=== PATIENT | male | born 1970 | race Caucasian/White ===

== ENCOUNTER 2018-05-19 22:16 | Inpatient (IN) | payer OTHER ==
[2018-05-19] MEDS ORDERED: HEPARIN SODIUM,PORCINE 5,000 UNIT/ML 1 ML VIAL IV ONE (22:34)
[2018-05-19] MEDS ORDERED: HEPARIN SODIUM,PORCINE 5,000 UNIT/ML 1 ML VIAL IV PRN (22:34)
[2018-05-19] MEDS ORDERED: NITROGLYCERIN-D5W PMX 50 MG in DEXTROSE/WATER 1 250ML.BAG IV ONE (22:34)
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
[2018-05-19] MEDS: HEPARIN SOD,PORK IN 0.45% NACL 25,000 UNIT in 0.45% NACL 1 250ML.BAG IV SCH (23:12)
[2018-05-19] MEDS ORDERED: MORPHINE SULFATE 4 MG/ML SYRINGE IV PRN (23:25)
[2018-05-19] MEDS ORDERED: NALOXONE 0.4 MG/ML 1 ML VIAL IV PRN (23:25)
[2018-05-19] MEDS ORDERED: ONDANSETRON 4 MG/2 ML VIAL IVP PRN (23:25)
[2018-05-19] MEDS ORDERED: cloNIDine HCL 0.2 MG TAB PO PRN (23:28)
[2018-05-20 00:22] LABS: Basophils # (A) 0.1 k/uL (0-0.2); Basophils % (A) 1 %; Eosinophils # (A) 0.4 k/uL (0-0.7); Eosinophils % (A) 5 %; HCT 48.6 % (39.0-53.0); HGB 16.2 gm/dL (13.0-17.5); Lymphocytes # (A) 3.3 k/uL (1.0-4.8); Lymphocytes % (A) 37 %; MCH 31.4 pg (25.0-35.0); MCHC 33.4 g/dL (31.0-37.0); MCV 94.1 fL (80.0-100.0); Mean Platelet Volume 7.2; Monocytes # (A) 0.4 k/uL (0-1.0); Monocytes % (A) 5 %; Neutrophils # (A) 4.6 k/uL (1.3-7.7); Neutrophils % (A) 52 %; Platelet Count 301 k/uL (150-450); RBC 5.16 m/uL (4.30-5.90); RDW 13.5 % (11.5-15.5); WBC 8.9 k/uL (3.8-10.6)
[2018-05-20 00:28] LABS: Partial Thromboplastin Time 46.1 sec (22.0-30.0); Prothrombin Time 10.5 sec (9.0-12.0)
[2018-05-20 00:31] LABS: ALT 44 U/L (21-72); AST 35 U/L (17-59); Albumin 4.8 g/dL (3.5-5.0); Alkaline Phosphatase 120 U/L (38-126); Anion Gap 14 mmol/L; Blood Urea Nitrogen 16 mg/dL (9-20); Calcium 11.3 mg/dL (8.4-10.2); Carbon Dioxide 21 mmol/L (22-30); Chloride 104 mmol/L (98-107); Glucose 99 mg/dL (74-99); Magnesium 1.9 mg/dL (1.6-2.3); Potassium 4.4 mmol/L (3.5-5.1); Sodium 139 mmol/L (137-145); Total Bilirubin 0.8 mg/dL (0.2-1.3)
[2018-05-20] MEDS ORDERED: MAG HYDROX/AL HYDROX/SIMETH 30 ML, HYOSCYAMINE ELIXIR 10 ML, CIMETIDINE HCL 300 MG PO ONE ×3 (01:34)
[2018-05-20] MEDS: CALCIUM CARBONATE 500 MG CHEWABLE PO PRN ×2 (01:36→23:39)
[2018-05-20] MEDS ORDERED: PANTOPRAZOLE 40 MG/10 ML VIAL IVP STA (02:16)
[2018-05-20 02:19] VITALS: BMI 32.6
[2018-05-20] MEDS: ACETAMINOPHEN TAB 325 MG TAB PO PRN ×2 (02:26→09:15)
[2018-05-20] MEDS: ALBUTEROL NEBULIZED 2.5 MG/3 ML INHALATION PRN ×2 (02:55→07:33)
[2018-05-20 04:36] LABS: Basophils # (A) 0.1 k/uL (0-0.2); Basophils % (A) 1 %; Eosinophils # (A) 0.4 k/uL (0-0.7); Eosinophils % (A) 4 %; HCT 46.5 % (39.0-53.0); HGB 15.3 gm/dL (13.0-17.5); Lymphocytes # (A) 2.4 k/uL (1.0-4.8); Lymphocytes % (A) 25 %; MCH 31.1 pg (25.0-35.0); MCHC 32.8 g/dL (31.0-37.0); MCV 94.8 fL (80.0-100.0); Mean Platelet Volume 6.3; Monocytes # (A) 0.5 k/uL (0-1.0); Monocytes % (A) 5 %; Neutrophils # (A) 6.3 k/uL (1.3-7.7); Neutrophils % (A) 64 %; Platelet Count 260 k/uL (150-450); RBC 4.91 m/uL (4.30-5.90); RDW 13.5 % (11.5-15.5); WBC 9.8 k/uL (3.8-10.6)
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
[2018-05-20] MEDS ORDERED: cloNIDine HCL 0.2 MG TAB PO SCH (09:00)
[2018-05-20] MEDS ORDERED: VALSARTAN 80 MG TAB PO SCH (09:00)
[2018-05-20] MEDS ORDERED: PANTOPRAZOLE 40 MG/10 ML VIAL IVP SCH (09:00)
[2018-05-20] MEDS ORDERED: ASPIRIN 325 MG TAB PO STA ×2 (09:09→09:22)
[2018-05-20] MEDS: METOPROLOL TARTRATE 25 MG TAB PO SCH ×2 (09:14→20:18)
[2018-05-20] MEDS ORDERED: ATORVASTATIN 80 MG TAB PO SCH (09:15)
[2018-05-20] MEDS ORDERED: SODIUM CHLORIDE 0.9% 1,000 ML in EMPTY BAG 1 BAG IV ONE (09:22)
[2018-05-20] MEDS ORDERED: ATORVASTATIN 80 MG TAB PO STA (09:22)
[2018-05-20] MEDS ORDERED: ALPRAZolam 0.25 MG TAB PO PRN (09:22)
[2018-05-20] MEDS ORDERED: ALPRAZolam 0.5 MG TAB PO PRN (09:22)
[2018-05-20] MEDS ORDERED: NITROGLYCERIN SL TABS 0.4 MG TAB SUBLINGUAL PRN (09:22)
[2018-05-20 09:56] LABS: Glucose,Whole Blood 133 mg/dL (75-99)
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
[2018-05-20] MEDS ORDERED: LIDOCAINE 1% INJ 10MG/ML (20 ML MDV) ONE (12:17)
[2018-05-20] MEDS ORDERED: IV FLUID CONTINUATION 1,000 ML IV ONE (12:19)
[2018-05-20] MEDS ORDERED: fentaNYL (PF) 50 MCG/ML 2 ML AMP ONE (12:40)
[2018-05-20] MEDS ORDERED: MIDAZOLAM 2 MG/2 ML VIAL IV ONE (12:44)
[2018-05-20] MEDS ORDERED: fentaNYL (PF) 50 MCG/ML 2 ML AMP IV ONE (12:44)
[2018-05-20] MEDS ORDERED: LIDOCAINE 1% INJ 10MG/ML (20 ML MDV) SQ ONE (12:45)
[2018-05-20] MEDS ORDERED: IOPAMIDOL-370 150ML BTL INJ ONE (12:59)
[2018-05-20] MEDS ORDERED: RX INFO: IV CONTRAST WAS GIVEN 1 EACH MISC MISCELLANE PRN (13:13)
--- NOTE | 2018-05-20 13:29 | CC ---
CARDIAC CATHETERIZATION REPORT Mr. Sams is a 47-year-old gentleman who was admitted with the complaint of chest discomfort and high blood pressure. The pain was in the substernal area. The patient's initial blood pressure was elevated. In view of the significant substernal chest pain at rest suggestive of unstable angina, the patient was recommended to have a cardiac catheterization for definitive diagnosis. PROCEDURE: The right groin was prepped and draped in the usual manner and the skin was infiltrated with 2% Xylocaine. The right femoral artery was entered using Seldinger technique and #6-Persian sheath was placed in. Selective coronary angiography was then performed in multiple projections and the left ventricular pressures were obtained. Patient tolerated the procedure well. Moderate sedation was used. Total sedation time 22 minutes. HEMODYNAMICS: Left ventricular end-diastolic pressure is 12 mmHg prior to angiography. No gradient is noted across the aortic valve. SELECTIVE CORONARY ANGIOGRAPHY: Left main coronary artery is normal and patent. LAD is a good caliber blood vessel and gives rise to good size diagonal branch. LAD and its branches are normal. Circumflex coronary artery is a good caliber blood vessel and distal circumflex coronary artery then continues as a PLV branch and it is normal. Right coronary artery is a normal caliber blood vessel and gives rise to the PDA and PLV branch. Right coronary artery and its branches are normal. FINAL IMPRESSION: This study reveals normal coronary arteries. Left ventricular end-diastolic pressure is normal. RECOMMENDATIONS: Medical treatment and aggressive control of the blood pressure. MMODL / IJN: [id number] /
[2018-05-20] MEDS: amLODIPine 5 MG TAB PO SCH ×2 (14:43→20:19)
--- NOTE | 2018-05-20 19:25 | ECHOF ---
Referral Reason:assess lvf MEASUREMENTS -------- HEIGHT: 182.9 cm WEIGHT: 105.7 kg BP: IVSd: 1.5 cm (0.6 - 1.1) LVIDd: 4.7 cm (3.9 - 5.3) LVPWd: 1.5 cm (0.6 - 1.1) IVSs: 1.7 cm LVIDs: 3.2 cm LVPWs: 1.8 cm Ao Diam: 3.5 cm (2.0 - 3.7) AV Cusp: 2.6 cm (1.5 - 2.6) LA Diam: 3.2 cm (2.7 - 3.8) MV EXCURSION: 21.866 mm (> 18.000) MV EF SLOPE: 96 mm/s (70 - 150) EPSS: 0.9 cm MV E Matteo: 0.42 m/s MV DecT: 220 ms MV A Matteo: 0.67 m/s MV E/A Ratio: 0.63 FINDINGS -------- Sinus rhythm. This was a techncally difficult study with suboptimal views, , Lumason utilized for enhancement of im ages. There is moderate concentric left ventricular hypertrophy. Overall left ventricular systolic functi on is normal with, an EF between 55 - 60 %. The right ventricle is normal in size. The left atrial size is normal. The right atrial size is normal. 5.0mg OF Lumason UTLIZED: 2 OR MORE WALL SEGMENTS NOT VISUALIZED. There is mild aortic valve sclerosis. There is no evidence of aortic regurgitation. Mild mitral annular calcification present. Mild mitral regurgitation is present. Unable to estimate RVSP due to inadequate TR jet spectral doppler profile. The pulmonic valve was not well visualized. There is no pericardial effusion. CONCLUSIONS -------- 1. This was a techncally difficult study with suboptimal views, , Lumason utilized for enhancement of images. 2. There is moderate concentric left ventricular hypertrophy. 3. Overall left ventricular systolic function is normal with, an EF between 55 - 60 %. 4. The right ventricle is normal in size. 5. The left atrial size is normal. 6. The right atrial size is normal. 7. 5.0mg OF Lumason UTLIZED: 2 OR MORE WALL SEGMENTS NOT VISUALIZED. 8. There is mild aortic valve sclerosis. 9. Mild mitral annular calcification present. 10. Mild mitral regurgitation is present. 11. Unable to estimate RVSP due to inadequate TR jet spectral doppler profile. 12. The pulmonic valve was not well visualized. 13. There is no pericardial effusion. SCHOOL PHOTOGRAPHER: Tisha Jerez RDCS
[2018-05-21] MEDS: ALBUTEROL NEBULIZED 2.5 MG/3 ML INHALATION PRN (00:10)
[2018-05-21] MEDS: HEPARIN SOD,PORK IN 0.45% NACL 25,000 UNIT in 0.45% NACL 1 250ML.BAG IV SCH (00:59)
[2018-05-21 06:26] LABS: Basophils % (A) 1 %; Eosinophils # (A) 0.3 k/uL (0-0.7); Eosinophils % (A) 4 %; HCT 43.2 % (39.0-53.0); HGB 14.6 gm/dL (13.0-17.5); Lymphocytes # (A) 2.7 k/uL (1.0-4.8); Lymphocytes % (A) 36 %; MCH 32.6 pg (25.0-35.0); MCHC 33.9 g/dL (31.0-37.0); MCV 96.3 fL (80.0-100.0); Mean Platelet Volume 6.6; Monocytes # (A) 0.4 k/uL (0-1.0); Monocytes % (A) 5 %; Neutrophils % (A) 53 %; Platelet Count 236 k/uL (150-450); RBC 4.49 m/uL (4.30-5.90); RDW 13.5 % (11.5-15.5); WBC 7.6 k/uL (3.8-10.6)
[2018-05-21] MEDS: METOPROLOL TARTRATE 25 MG TAB PO SCH (08:28)
[2018-05-21] MEDS ORDERED: ATORVASTATIN 40 MG TAB PO SCH (09:00)
[2018-05-21] MEDS ORDERED: VALSARTAN 80 MG TAB PO SCH (09:00)
[2018-05-21] MEDS ORDERED: ASPIRIN 81 MG PO SCH (09:00)
[2018-05-21 09:17] VITALS: BP 133/89; PULSE 66; RESP 18; TEMP 97.9
--- NOTE | 2018-05-21 10:03 | P.DS ---
Providers Date of admission: 05/19/18 23:35 Attending physician: Antoinette Wellington Consults: 05/19/18 23:25 Consult Physician Routine Consulting Provider: Celso Salazar Consult Reason/Comments: UA Do you want consulting provider notified?: Yes Primary care physician: Ferny Gupta [facility] Course: Although discharge medication reconciliation discharge prescription for provided by cardiology. Patient Condition at Discharge: Stable Plan - Discharge Summary New Discharge Prescriptions: New amLODIPine [Norvasc] 5 mg PO BID #60 tab Aspirin 81 mg PO DAILY #30 chew Atorvastatin [Lipitor] 40 mg PO DAILY #30 tab Metoprolol Tartrate [Lopressor] 25 mg PO BID #60 tab Nitroglycerin Sl Tabs [Nitrostat] 0.4 mg SUBLINGUAL Q5M PRN #25 tab PRN Reason: Chest Pain Valsartan [Diovan] 160 mg PO DAILY #30 tab Continue cloNIDine HCL [Catapres] 0.2 mg PO DAILY PRN PRN Reason: HIGH BLOOD PRESSURE Discontinued Valsartan [Diovan] 80 mg PO DAILY No Action diphenhydrAMINE [Benadryl] 25 mg PO HS PRN PRN Reason: Allergy Symptoms Famotidine 40 mg PO HS Albuterol Nebulized [Ventolin Nebulized] 2.5 mg INHALATION RT-Q6H PRN PRN Reason: Shortness Of Breath Albuterol Inhaler [Ventolin Hfa Inhaler] 2 puff INHALATION RT-Q6H PRN PRN Reason: Shortness Of Breath cloNIDine HCL [Catapres] 0.2 mg PO DAILY Discharge Medication List Albuterol Inhaler [Ventolin Hfa Inhaler] 2 puff INHALATION RT-Q6H PRN 05/19/18 [ History] Albuterol Nebulized [Ventolin Nebulized] 2.5 mg INHALATION RT-Q6H PRN 05/19/18 [ History] Famotidine 40 mg PO HS 05/19/18 [History] cloNIDine HCL [Catapres] 0.2 mg PO DAILY 05/19/18 [History] cloNIDine HCL [Catapres] 0.2 mg PO DAILY PRN 05/19/18 [History] diphenhydrAMINE [Benadryl] 25 mg PO HS PRN 05/19/18 [History] Aspirin 81 mg PO DAILY #30 chew 03/02/19 [Rx] Atorvastatin [Lipitor] 40 mg PO DAILY #30 tab 05/21/18 [Rx] Metoprolol Tartrate [Lopressor] 25 mg PO BID #60 tab 05/21/18 [Rx] Nitroglycerin Sl Tabs [Nitrostat] 0.4 mg SUBLINGUAL Q5M PRN #25 tab 05/21/18 [Rx ] Valsartan [Diovan] 160 mg PO DAILY #30 tab 05/21/18 [Rx] amLODIPine [Norvasc] 5 mg PO BID #60 tab 05/21/18 [Rx] Follow up Appointment(s)/Referral(s): Ferny Gupta MD [Primary Care Provider] - 1-2 days (Please call during business hours to make follow up appointment ) Patient Instructions/Handouts: Left Heart Catheterization (DC) Discharge Disposition: Left Against Medical Advice
--- NOTE | 2018-05-24 10:25 | CDI ---
Documentation Clarification Form Date: 05/24/18 From: Suma Medhat Edwigeodalys Bryant, Refractory Manager Hours-8:30 am & 5 pm Lenny Admit Date: 05/19/2018 11:35:00 PM Patient Name: Tyson Sams Visit Number: [id number] Discharge Date: 05/21/2018 9:23:00 AM ATTENTION: The Clinical Documentation Specialists (CDI) and [facility] Coding Staff appreciate your assistance in clarifying documentation. Please respond to the clarification below the line at the bottom and electronically sign. The CDI & [facility] Coding staff will review the response and follow-up if needed. Please note: Queries are made part of the Legal Health Record. If you have any questions, please contact the author of this message via ITS. Dr. Sergio Siddiqui Chest pain is documented in the ED note, H&P & consult. Patient C/O: chest pain, dyspnea, diaphoresis History/Risk factors: hx CAD, s/p angioplasty, Hypertensive urgency w HTN Clinical Indicators: BP-154/113, 165/102, 143/95 Labs: Troponin I-<0.12, <0.012, <0.015; Echo:- EF 55-60%, mild aortic valve sclerosis, mild mitral regurgitaion Treatment: IV Heparin, echo, fasting lipid profile, HC Consults: cardiology In your professional opinion, can please clarify if the chest pain signifies, or is due to: CAD with angina (specify vessel and type of angina if known) Hypertensive urgency Chest wall pain Costrochondritis GERD Unstable angina Other condition, please specify Unable to determine Unable to determine MTDD
== END 2018-05-21 09:23 | disposition left against medical advice (07) | DRG 287 ==
LOC: EC 22:16 → 3SCARD 23:35
PROVIDERS: ADMIT Hospitalist; ATTEND Hospitalist
PROC: B2111ZZ Fluoroscopy of Multiple Coronary Arteries using Low Osmolar Contrast (ICD-10-PCS; 2018-05-20)
PROC: 4A023N7 Measurement of Cardiac Sampling and Pressure, Left Heart, Percutaneous Approach (ICD-10-PCS; principal; 2018-05-20 12:11)
DX: R07.9 Chest pain, unspecified (principal); E78.5 Hyperlipidemia, unspecified; I16.0 Hypertensive urgency; I10 Essential (primary) hypertension; I25.2 Old myocardial infarction; G40.909 Epilepsy, unspecified, not intractable, without status epilepticus; J45.909 Unspecified asthma, uncomplicated; F17.210 Nicotine dependence, cigarettes, uncomplicated; Z71.6 Tobacco abuse counseling; Z79.899 Other long term (current) drug therapy; Z87.438 Personal history of other diseases of male genital organs; Z86.79 Personal history of other diseases of the circulatory system; Z98.61 Coronary angioplasty status; Z90.49 Acquired absence of other specified parts of digestive tract; Z88.5 Allergy status to narcotic agent; Z88.8 Allergy status to other drugs, medicaments and biological substances; Z82.49 Family history of ischemic heart disease and other diseases of the circulatory system
CPT/HCPCS: 80053; 83735; 84484; 85025; 85610; 85730; 93005; 93306; 93458; 94640; 94760; 96365; 96366; 96368; 99291

== ENCOUNTER → 2021-06-16 | Outpatient (CLI) | payer OTHER ==
[2021-06-16 14:37] LABS: HCT 47.9 % (39.6-50.0); HGB 15.7 g/dL (13.0-17.0); MCH 33.2 pg (27.0-32.0); MCHC 32.8 g/dL (32.0-37.0); MCV 101.3 fL (80.0-97.0); NRBC Per 100 WBC 0 /100 WBCS (0.0-0.0); Platelet Count 254 X 10*3/uL (140-440); RBC 4.73 X 10*6/uL (4.40-5.60); RDW 13.8 % (11.5-14.5); WBC 8.36 X 10*3/uL (4.50-10.00)
[2021-06-16 15:26] LABS: African American GFR (CKD) 115.8 (60.0-200.0); BUN/Creat Ratio 10.22 Ratio (12.00-20.00); Blood Urea Nitrogen 9.2 mg/dL (9.0-27.0); Calcium 9.6 mg/dL (8.7-10.3); Magnesium 1.9 mg/dL (1.5-2.4); Non-African American GFR(CKD) 99.9 (60.0-200.0); Phosphorus 3.3 mg/dL (2.4-5.1); Potassium 4.3 mmol/L (3.5-5.5)
[2021-06-16 21:56] LABS: Potassium,Urine Random 29.9 mmol/L (25.0-125.0)
== END | disposition home or self-care (01) ==
LOC: LABWHC1 09:09
PROVIDERS: ATTEND Nurse Practitioner Acute Care
DX: I10 Essential (primary) hypertension (principal); E83.52 Hypercalcemia
CPT/HCPCS: 36415; 80048; 82024; 82088; 82570; 83498; 83735; 84100; 84133; 84244; 84300; 85027